=== PATIENT | male | born 1975 | race Hispanic/Latino ===

== ENCOUNTER 2019-06-04 10:07 | Emergency (ER) | payer SELFPAY ==
[2019-06-04] MEDS ORDERED: MORPHINE 4 MG/ML SYR ONE (10:31)
[2019-06-04] MEDS ORDERED: ONDANSETRON 4 MG/2 ML VIAL ONE (10:31)
[2019-06-04] MEDS ORDERED: NA CHLORIDE 0.9% 1,000 ML ONE (10:31)
[2019-06-04 10:57] LABS: Absolute Lymphocytes (CBC) 1.6 K/uL (0.7-4.9); Basophils % 0.6 % (0-1.3); Hematocrit 44.2 % (39.6-49.0); Lymphocytes % 33.1 % (15.3-44.8); MPV 9.7 fL (7.6-11.3)
[2019-06-04 11:29] LABS: ALT/SGPT 60 U/L (12-78); AST/SGOT 31 U/L (15-37); Albumin 3.6 g/dL (3.4-5.0); Alkaline Phosphatase 62 U/L (45-117); BUN Blood Urea Nitrogen 11 mg/dL (7-18); Bicarbonate 25 mmol/L (21-32); Bilirubin Direct < 0.1 mg/dL (0-0.2); Bilirubin Total 0.5 mg/dL (0.2-1.0); Glucose Level 121 mg/dL (74-106); Lipase 175 U/L (73-393); Protein, Total 7.4 g/dL (6.4-8.2); Sodium Level 138 mmol/L (136-145)
--- NOTE | 2019-06-04 12:32 | RAD REPORT ---
EXAM DESCRIPTION: CT - Abdomen Pelvis W Contrast - 06/04/2019 12:20 pm CLINICAL HISTORY: ABD PAIN COMPARISON: No comparisons TECHNIQUE: Biphasic, helical CT imaging of the abdomen and pelvis was performed following 100 ml non -ionic IV contrast. No oral contrast. All CT scans are performed using dose optimization technique as appropriate and may include automated exposure control or mA/KV adjustment according to patient size. FINDINGS: Left hemidiaphragm elevation is present. Stranding in the posteromedial left base is proba tai chronic atelectasis. An acute infiltrate is not seen. No pleural effusion. No pericardial thicken ing or effusion. Liver shows mild fatty infiltration. No focal liver lesion identified. Spleen and pancreas show no ac tere findings. No gallbladder abnormality. No biliary tree dilatation. Symmetric renal function is seen with no hydronephrosis or suspicious renal mass. No pyelonephritis o r acute parenchymal process. No bladder abnormalities. No adrenal abnormalities. Prostate gland and s eminal vesicles show no suspicious findings. No gastric dilatation or wall thickening. No small bowel abnormality. Appendix is normal. No acute co cadence finding seen. No free air, free fluid or inflammatory stranding. No mass or bulky lymphadenopat hy. Patient gives history of hernia repair, site of repair is not clearly evident. There are 2 hyperd ensities in the upper midline abdomen the could potentially be related to hiatal hernia repair. The p atient has a small fat only ventral hernia 9 cm above the umbilicus. This is approximately 3 cm AP x 1.5 cm TR with a 1 centimeter neck. No congestion or edema. No free air, free fluid or inflammatory stranding. No suspicious lymphadenopathy. No suspicious bony findings. IMPRESSION: Contrast enhanced CT abdomen and pelvis showing no emerging finding. Mild fatty infiltration of the liver.
[2019-06-04] MEDS ORDERED: KETOROLAC 30 MG/ML INJ ONE (13:18)
--- NOTE | 2019-06-04 13:24 | ER ---
Nurse's Notes [facility] Name: Buck Hauser Age: 43 yrs Sex: Male : 1975 Arrival Date: 06/04/2019 Time: 10:10 Bed 15 Private MD: Diagnosis: Abdominal tenderness Presentation: 06/04 10:10 Presenting complaint: Patient states: abd pain that started on the left side and went sv to the middle x 3 days, c/o nausea. Denies d/v. Transition of care: patient was not received from another setting of care. Onset of symptoms was June 01, 2019. Care prior to arrival: None. 10:10 Method Of Arrival: Ambulatory sv 10:10 Acuity: DIPAK 3 sv 10:40 Risk Assessment: Do you want to hurt yourself or someone else? Patient reports no em desire to harm self or others. Initial Sepsis Screen: Does the patient meet any 2 criteria? No. Patient's initial sepsis screen is negative. Does the patient have a suspected source of infection? No. Patient's initial sepsis screen is negative. Triage Assessment: 10:14 General: Appears in no apparent distress. uncomfortable, Behavior is calm, cooperative, sv appropriate for age. Pain: Complains of pain in epigastric area, left upper quadrant and left lower quadrant Pain currently is 10 out of 10 on a pain scale. Neuro: Level of Consciousness is awake, alert, obeys commands, Gait is steady. Respiratory: Respiratory effort is even, unlabored, Respiratory pattern is regular, symmetrical. GI: Reports lower abdominal pain, upper abdominal pain, nausea. Historical: - Allergies: 10:13 No Known Allergies; sv - PMHx: 10:13 gastritis; sv - PSHx: 10:13 Hernia repair; sv - Coronavirus screen:: The patient has NOT traveled to [place] in the past 14 days. Proceed with normal triage process as indicated. The patient has NOT had contact with known/suspected case of Coronavirus? Proceed with normal triage procedures. - Social history:: Smoking status: . - Ebola Screening: : No symptoms or risks identified at this time. Screenin:17 Abuse screen: Denies threats or abuse. Nutritional screening: No deficits noted. em Tuberculosis screening: No symptoms or risk factors identified. Fall Risk None identified. Assessment: 10:35 General: Appears in no apparent distress. uncomfortable, Behavior is calm, cooperative, em Denies fever. Pain: Complains of pain in left lower quadrant Pain radiates to umbilical area Pain currently is 9 out of 10 on a pain scale. Quality of pain is described as sharp, shooting, Pain began 2-3 days ago. Neuro: Level of Consciousness is awake, alert, obeys commands, Oriented to person, place, time, situation, Appropriate for age. Cardiovascular: Capillary refill < 3 seconds Patient's skin is warm and dry. Respiratory: Airway is patent Respiratory effort is even, unlabored, Respiratory pattern is regular, symmetrical. GI: Abdomen is flat, Bowel sounds present X 4 quads. Abd is soft X 4 quads Abdomen is tender to palpation in right lower quadrant and left lower quadrant Reports nausea, vomiting, Patient currently denies diarrhea. : Denies burning with urination. Derm: Skin is intact, is healthy with good turgor, Skin is pink, warm \T\ dry. Musculoskeletal: Capillary refill < 3 seconds, Range of motion: intact in all extremities. 11:08 Reassessment: Patient appears in no apparent distress at this time. Patient and/or em family updated on plan of care and expected duration. Pain level reassessed. Patient is alert, oriented x 3, equal unlabored respirations, skin warm/dry/pink. rates pain 5/10 Patient states feeling better. Patient states symptoms have improved. 12:10 Reassessment: Patient appears in no apparent distress at this time. wheeled to CT via em wheelchair. 13:04 Reassessment: Patient appears in no apparent distress at this time. reports pain is em 12/18, provider notified. 14:09 Reassessment: Patient appears in no apparent distress at this time. Patient and/or em family updated on plan of care and expected duration. Pain level reassessed. Patient is alert, oriented x 3, equal unlabored respirations, skin warm/dry/pink. Patient denies pain at this time. Vital Signs: 10:13 BP 134 / 83; Pulse 75; Resp 20; Temp 97.7; Pulse Ox 98% ; Weight 83.91 kg; Height 5 ft. sv 7 in. (170.18 cm); Pain 10/10; 11:09 BP 125 / 87; Pulse 77; Resp 18; Pulse Ox 99% on R/A; Pain 5/10; em 12:00 BP 125 / 82; Pulse 75; Resp 18; Pulse Ox 99% on R/A; em 13:00 BP 126 / 85; Pulse 73; Resp 16; Pulse Ox 100% on R/A; Pain 9/10; em 14:10 BP 132 / 87; Pulse 68; Resp 19; Pulse Ox 100% on R/A; Pain 0/10; em 10:13 Body Mass Index 28.97 (83.91 kg, 170.18 cm) sv ED Course: 10:10 Patient arrived in ED. rg4 10:10 Arm band placed on. sv 10:13 Triage completed. sv 10:16 Jose Ceballos MD is Attending Physician. tw4 10:17 Sharif Bolanos, RN is Primary Nurse. em 10:17 Patient has correct armband on for positive identification. Bed in low position. Call em light in reach. Side rails up X2. Adult w/ patient. Pulse ox on. NIBP on. 10:40 Initial lab(s) drawn, by me, sent to lab. Inserted saline lock: 20 gauge in right em antecubital area, using aseptic technique. Blood collected. 12:21 CT Abd/Pelvis - IV Contrast Only In Process Unspecified. EDMS 14:08 No provider procedures requiring assistance completed. IV discontinued, intact, em bleeding controlled, No redness/swelling at site. Pressure dressing applied. Administered Medications: 10:40 Drug: NS 0.9% 1000 ml Route: IV; Rate: 1 bolus; Site: right antecubital; em 12:13 Follow up: IV Status: Completed infusion; IV Intake: 1000ml em 10:41 Drug: Zofran 4 mg Route: IVP; Site: right antecubital; em 11:08 Follow up: Response: No adverse reaction; Marked relief of symptoms; Nausea is decreasedem 10:43 Drug: morphine 4 mg Route: IVP; Site: right antecubital; em 11:08 Follow up: Response: No adverse reaction; Pain is decreased; RASS: Alert and Calm (0) em 13:17 Drug: TORadol 30 mg Route: IVP; Site: right antecubital; em 14:12 Follow up: Response: No adverse reaction; Pain is decreased em Intake: 12:13 IV: 1000ml; Total: 1000ml. em Outcome: 13:21 Discharge ordered by . tw4 14:08 Discharged to home ambulatory, with family. em 14:08 Condition: good 14:08 Discharge instructions given to patient, family, Instructed on discharge instructions, follow up and referral plans. medication usage, Demonstrated understanding of instructions, follow-up care, medications, Prescriptions given X 2. 14:13 Patient left the ED. em Signatures: Dispatcher [employer] Eladia Ely RN RN sv Munoz, Edgar, RN RN Annabel Hauser 4 Jose Ceballos MD MD tw4 Corrections: (The following items were deleted from the chart) 10:15 10:13 Pulse 75bpm; Resp 20bpm; Pulse Ox 98%; Temp 97.7F; 83.91 kg; Height 5 ft. 7 in.; sv BMI: 28.9; Pain 01/17; sv
--- NOTE | 2019-06-04 13:24 | EDPHYS ---
Physician Documentation [facility] Name: Buck Hauser Age: 43 yrs Sex: Male : 1975 Arrival Date: 06/04/2019 Time: 10:10 Bed 15 Private MD: ED Physician Jose Ceballos HPI: 06/04 10:57 This 43 yrs old Male presents to ER via Ambulatory with complaints of tw4 Abdominal Pain, Back Pain. 10:57 The patient presents with abdominal pain in the lower abdomen, in the left lower tw4 quadrant. 10:58 Onset: The symptoms/episode began/occurred 3 day(s) ago. The symptoms radiate to tw4 umbilical area. Associated signs and symptoms: Pertinent positives: nausea, Pertinent negatives: diarrhea, dysuria, fever, headache, palpitations, shortness of breath, testicular pain, vomiting, vomiting blood. The symptoms are described as sharp. Modifying factors: The symptoms are alleviated by nothing, the symptoms are aggravated by nothing. Severity of pain: At its worst the pain was moderate in the emergency department the pain is unchanged. The patient has not experienced similar symptoms in the past. Historical: - Allergies: 10:13 No Known Allergies; sv - PMHx: 10:13 gastritis; sv - PSHx: 10:13 Hernia repair; sv - Coronavirus screen:: The patient has NOT traveled to [place] in the past 14 days. Proceed with normal triage process as indicated. The patient has NOT had contact with known/suspected case of Coronavirus? Proceed with normal triage procedures. - Social history:: Smoking status: . - Ebola Screening: : No symptoms or risks identified at this time. ROS: 10:58 Constitutional: Negative for fever, chills, and weight loss, Eyes: Negative for injury, tw4 pain, redness, and discharge, ENT: Negative for injury, pain, and discharge, Cardiovascular: Negative for chest pain, palpitations, and edema, Respiratory: Negative for shortness of breath, cough, wheezing, and pleuritic chest pain, Back: Negative for injury and pain, MS/Extremity: Negative for injury and deformity, Skin: Negative for injury, rash, and discoloration, Neuro: Negative for headache, weakness, numbness, tingling, and seizure. 10:58 Abdomen/GI: Positive for abdominal pain, nausea, Negative for nausea and vomiting, nausea, vomiting, and diarrhea, diarrhea, constipation, abdominal cramps, abdominal distension, anorexia, dysphagia, hematemesis, black/tarry stool, rectal pain, rectal bleeding, bowel incontinence, flatulence. Exam: 10:58 Constitutional: This is a well developed, well nourished patient who is awake, alert, tw4 and in no acute distress. Head/Face: Normocephalic, atraumatic. Chest/axilla: Normal chest wall appearance and motion. Nontender with no deformity. No lesions are appreciated. Cardiovascular: Regular rate and rhythm with a normal S1 and S2. No gallops, murmurs, or rubs. Normal PMI, no JVD. No pulse deficits. Respiratory: Lungs have equal breath sounds bilaterally, clear to auscultation and percussion. No rales, rhonchi or wheezes noted. No increased work of breathing, no retractions or nasal flaring. Back: No spinal tenderness. No costovertebral tenderness. Full range of motion. Skin: Warm, dry with normal turgor. Normal color with no rashes, no lesions, and no evidence of cellulitis. MS/ Extremity: Pulses equal, no cyanosis. Neurovascular intact. Full, normal range of motion. Neuro: Awake and alert, GCS 15, oriented to person, place, time, and situation. Cranial nerves II-XII grossly intact. Motor strength 5/5 in all extremities. Sensory grossly intact. Cerebellar exam normal. Normal gait. 10:58 Abdomen/GI: Inspection: abdomen appears normal, Bowel sounds: diminished, in all quadrants, Palpation: moderate abdominal tenderness, in the left lower quadrant. Vital Signs: 10:13 BP 134 / 83; Pulse 75; Resp 20; Temp 97.7; Pulse Ox 98% ; Weight 83.91 kg; Height 5 ft. sv 7 in. (170.18 cm); Pain 10/10; 11:09 BP 125 / 87; Pulse 77; Resp 18; Pulse Ox 99% on R/A; Pain 5/10; em 12:00 BP 125 / 82; Pulse 75; Resp 18; Pulse Ox 99% on R/A; em 13:00 BP 126 / 85; Pulse 73; Resp 16; Pulse Ox 100% on R/A; Pain 9/10; em 14:10 BP 132 / 87; Pulse 68; Resp 19; Pulse Ox 100% on R/A; Pain 0/10; em 10:13 Body Mass Index 28.97 (83.91 kg, 170.18 cm) sv MDM: 10:16 Patient medically screened. tw 21:20 Differential diagnosis: bowel obstruction, diverticulitis, Irritable bowel syndrome, tw4 pancreatitis, Peritonitis, Pyelonephritis, Ureterolithiasis, urinary tract infection. Data reviewed: vital signs, nurses notes. Data reviewed: lab test result(s), CBC, electrolytes, radiologic studies, CT scan. Data interpreted: Pulse oximetry: Interpretation: normal. Counseling: I had a detailed discussion with the patient and/or guardian regarding: the historical points, exam findings, and any diagnostic results supporting the discharge/admit diagnosis. Medication response: Toradol relieved patient's pain. The symptoms have resolved. Response to treatment: the patient's symptoms have markedly improved after treatment, and as a result, I will discharge patient. Special discussion: Based on the patient's Hx, exam, and Dx evaluation, there is no indication for emergent surgery or inpatient Tx. It is understood by the patient/guardian that if the Sx's persist or worsen they need to return immediately for re-evaluation. I discussed with the patient/guardian in detail that at this point there is no indication for admission to the hospital. It is understood, however, that if the symptoms persist or worsen the patient needs to return immediately for re-evaluation. 06/04 10:21 Order name: Basic Metabolic Panel; Complete Time: 11:39 06/04 11:40 Interpretation: Normal except: GLUC 121. 06/04 10:21 Order name: CBC with Diff; Complete Time: 11:39 06/04 11:40 Interpretation: Normal except: RDW 11.6. 06/04 10:21 Order name: Creatinine for Radiology; Complete Time: 11:39 06/04 11:40 Interpretation: Within normal limits: CRE 0.83. 06/04 10:21 Order name: Hepatic Function; Complete Time: 11:39 06/04 11:40 Interpretation: Normal except: GLOB 3.8; A/G 0.9. 06/04 10:21 Order name: Lipase; Complete Time: 11:39 06/04 11:40 Interpretation: Within normal limits: LIP 175. 25 13:20 Order name: Urine Dipstick--Ancillary (enter results); Complete Time: 14:12 bd 06/04 10:21 Order name: IV Saline Lock; Complete Time: 11:00 tw4 06/04 10:21 Order name: Labs collected and sent; Complete Time: 11:00 tw4 06/04 10:41 Order name: CT Abd/Pelvis - IV Contrast Only; Complete Time: 12:44 tw4 06/04 12:44 Interpretation: No acute disease. tw4 06/04 12:46 Order name: Urine Dipstick-Ancillary (obtain specimen); Complete Time: 13:20 tw4 Administered Medications: 10:40 Drug: NS 0.9% 1000 ml Route: IV; Rate: 1 bolus; Site: right antecubital; em 12:13 Follow up: IV Status: Completed infusion; IV Intake: 1000ml em 10:41 Drug: Zofran 4 mg Route: IVP; Site: right antecubital; em 11:08 Follow up: Response: No adverse reaction; Marked relief of symptoms; Nausea is decreasedem 10:43 Drug: morphine 4 mg Route: IVP; Site: right antecubital; em 11:08 Follow up: Response: No adverse reaction; Pain is decreased; RASS: Alert and Calm (0) em 13:17 Drug: TORadol 30 mg Route: IVP; Site: right antecubital; em 14:12 Follow up: Response: No adverse reaction; Pain is decreased em Disposition: 06/04/19 13:21 Discharged to Home. Impression: Abdominal tenderness. - Condition is Stable. - Discharge Instructions: Abdominal Pain, Adult. - Prescriptions for Bentyl 20 mg Oral Tablet - take 1 tablet by ORAL route every 6 hours As needed; 20 tablet. Ibuprofen 800 mg Oral Tablet - take 1 tablet by ORAL route every 8 hours As needed take with food; 30 tablet. - Medication Reconciliation Form, Thank You Letter, Antibiotic Education, Prescription Opioid Use form. - Follow up: Private Physician; When: Upon discharge from the Emergency Department; Reason: If symptoms return, Recheck today's complaints, Continuance of care, Re-evaluation by your physician. Signatures: [facility] Eladia Ely RN RN Sharif Bolanos RN RN em Jose Ceballos MD MD tw4 Corrections: (The following items were deleted from the chart) 14:13 13:21 06/04/2019 13:21 Discharged to Home. Impression: Abdominal tenderness. Condition em is Stable. Forms are Medication Reconciliation Form, Thank You Letter, Antibiotic Education, Prescription Opioid Use. Follow up: Private Physician; When: Upon discharge from the Emergency Department; Reason: If symptoms return, Recheck today's complaints, Continuance of care, Re-evaluation by your physician. tw4
[2019-06-04 14:05] LABS: Urine Blood NEGATIVE (NEG); Urine Glucose NEGATIVE (NEG); Urine Protein NEGATIVE (NEG)
[2019-06-04 14:19] VITALS: TEMP 97.7
[2019-06-04 14:24] VITALS: O2SAT 100
[2019-06-04 14:25] VITALS: BP 132/87
== END 2019-06-04 14:13 | disposition home or self-care (01) ==
LOC: ER 10:07
DX: R10.814 Left lower quadrant abdominal tenderness (principal)
CPT/HCPCS: 36415; 74177; 80048; 80076; 81003; 83690; 85025; 96361; 96374; 96375; 99284; J2405; J7030; Q9967

== ENCOUNTER 2021-12-20 12:55 | Emergency (ER) | payer SELFPAY ==
--- OUTSIDE RECORDS SUMMARY | 2021-12-20 12:58 | XMS REPORT | Continuity of Care Document ---
:[address] [facility] t Address [address] [place] [address] [address] [place] [address] Care Team Providers Name Role Phone PCP, PATIENT DOES NOT HAVE A Primary Care Physician Unavaila EFREM Farmer Attending Clinician Unavailable Lab, Max Carrasco I Attending Clinician Unavailable Latricia Rae Attending Clinician LATRICIA VILLAFUERTE Attending Clinician Unavailable Problems This patient has no known problems. Allergies, Adverse Reactions, Alerts Allergy Allergy Status Severity Reaction(s) Onset Inactive Treating Comm ents Source Name Type Date Date Clinician NO KNOWN Drug Active [facility] Social History Social Habit Start Date Stop Date Quantity Comments Source [facility] Exposure to SARS-CoV-2 Not sure [facility] [place] [facility] Smoking Status Start Date Stop Date Source Unknown if ever smoked [facility] Medications This patient has no known medications. Procedures This patient has no known procedures. Encounters Start End Encounter Admission Attending Care Care Encounter Source Date/Time Date/Time Type Type Clinicians Facility Department ID 2020-07-18 2020-07-18 Outpatient Sunita [facility] [id number] [facility] 16:50:00 15:48:01 [facility] 2020-06-27 2020-06-27 Outpatient Sunita [facility] [id number] [facility] 16:50:00 16:50:00 [facility] 2020-03-26 2020-03-26 Laboratory Lab, [facility] Fam Pob I [facility] 1.2. [id number] [facility] 19:00:12 19:20:12 Only Latricia Villafuerte [facility] [id number] [facility] [id number] [facility] as Professio [phone] [place] [address] [place] [address] [address] 2020-03-26 2020-03-26 Outpatient R [facility]Y [facility] [id number] [facility] 19:00:00 19:00:00 LATRICIA deleon [facility] Results This patient has no known results.
[2021-12-20] MEDS ORDERED: MORPHINE 4 MG/ML SYR ONE (13:32)
[2021-12-20] MEDS ORDERED: ONDANSETRON 4 MG/2 ML VIAL ONE (13:33)
[2021-12-20] MEDS ORDERED: NA CHLORIDE 0.9% 1,000 ML ONE (13:33)
[2021-12-20 13:41] LABS: Albumin 3.9 g/dL (3.4-5.0); Bilirubin Total 0.5 mg/dL (0.2-1.0); Potassium 4.2 mmol/L (3.5-5.1); Protein, Total 7.4 g/dL (6.4-8.2)
--- NOTE | 2021-12-20 13:46 | RAD REPORT ---
EXAM DESCRIPTION: CT - Stone Protocol - 12/20/2021 1:23 pm CLINICAL HISTORY: Abdominal pain./right flank pain COMPARISON: 2019 TECHNIQUE: Computed axial tomography of the abdomen pelvis was obtained without oral or IV contrast. Lack of IV and oral contrast limits evaluation of solid organs, appendix, bowel, and vessels. Erazo l reformatted images were obtained and reviewed. All CT scans are performed using dose optimization technique as appropriate and may include automated exposure control or mA/KV adjustment according to patient size. FINDINGS: Small bilateral renal calculi. Mild to moderate right hydronephrosis. Right ureter dilated. 2 millimeter calculus right UVJ. Mild fatty liver Spleen, pancreas and adrenals are unremarkable. There is no evidence of diverticulitis. The appendix appears normal Mild prostatic enlargement IMPRESSION: 2 millimeter calculus right UVJ resulting in mild to moderate right hydronephrosis
[2021-12-20] MEDS ORDERED: TAMSULOSIN 0.4 MG SR CAP ONE (14:23)
[2021-12-20 14:24] LABS: Absolute Lymphocytes (CBC) 1.6 K/uL (0.7-4.9); Hematocrit 41.6 % (39.6-49.0); Lymphocytes % 32.8 % (15.3-44.8); MCV 84.9 fL (80-100); MPV 9.7 fL (7.6-11.3)
[2021-12-20] MEDS ORDERED: KETOROLAC 30 MG/ML INJ ONE (16:01)
[2021-12-20 16:12] LABS: Urine Blood Trace-intact (Negative); Urine Glucose Negative (Negative); Urine Protein Negative (Negative)
--- NOTE | 2021-12-20 16:38 | EDPHYS ---
Physician Documentation [facility] Name: Buck Hauser Age: 46 yrs Sex: Male : 1975 Arrival Date: 12/20/2021 Time: 12:57 Bed 9 Private MD: CLARE Physician Oscar Siddiqi HPI: 12/20 13:08 This 46 yrs old Male presents to ER via Ambulatory with complaints of jmm Abdominal Pain. 13:08 The patient presents with abdominal pain. Onset: The symptoms/episode began/occurred jmm gradually, today. The symptoms do not radiate. Associated signs and symptoms: Pertinent positives: nausea. This is a 46-year-old male with history of gastritis, kidney stones the presents emerged part with complaints of right flank pain beginning last night and worsening today around 9 AM.. Historical: - Allergies: 13:05 No Known Allergies; aa5 - PMHx: 13:05 gastritis; aa5 13:06 Kidney stone; aa5 - Immunization history:: Adult Immunizations unknown. - Social history:: Smoking status: Patient denies any tobacco usage or history of. ROS: 13:08 Constitutional: Negative for fever, chills, and weight loss, Cardiovascular: Negative jmm for chest pain, palpitations, and edema, Respiratory: Negative for shortness of breath, cough, wheezing, and pleuritic chest pain. 13:08 Abdomen/GI: Positive for abdominal pain, nausea. 13:08 Back: Positive for flank pain, on the right. 13:08 All other systems are negative. Exam: 13:08 Constitutional: This is a well developed, well nourished patient who is awake, alert, jmm and in no acute distress. Head/Face: atraumatic. Eyes: EOMI, no conjunctival erythema appreciated ENT: Moist Mucus Membranes Neck: Trachea midline, Supple Chest/axilla: Normal chest wall appearance and motion. Cardiovascular: Regular rate and rhythm. No edema appreciated Respiratory: Normal respirations, no respiratory distress appreciated 13:08 Skin: General appearance color normal MS/ Extremity: Moves all extremities, no obvious deformities appreciated, no edema noted to the lower extremities Neuro: Awake and alert Psych: Behavior is normal, Mood is normal, Patient is cooperative and pleasant 13:08 Abdomen/GI: Inspection: abdomen appears normal, Bowel sounds: normal, Palpation: soft, mild abdominal tenderness, in the right lower quadrant. 13:08 Back: CVA tenderness, that is moderate, is noted on the right. Vital Signs: 13:04 BP 124 / 81; Pulse 71; Resp 16 S; Temp 97.7(TE); Pulse Ox 98% on R/A; Weight 90.72 kg aa5 (R); Height 5 ft. 7 in. (170.18 cm) (R); 17:00 BP 129 / 71; Pulse 70; Resp 18; Pulse Ox 96% on R/A; em6 13:04 Body Mass Index 31.32 (90.72 kg, 170.18 cm) aa5 MDM: 13:08 Patient medically screened. [facility] 16:37 Data reviewed: vital signs, nurses notes. Counseling: I had a detailed discussion with [facility] the patient and/or guardian regarding: the historical points, exam findings, and any diagnostic results supporting the discharge/admit diagnosis, lab results, radiology results, the need for outpatient follow up, to return to the emergency department if symptoms worsen or persist or if there are any questions or concerns that arise at home. 12/20 13:08 Order name: CBC with Diff; Complete Time: 14:54 [facility] 12/20 13:08 Order name: CMP; Complete Time: 13:42 [facility] 12/20 13:08 Order name: Lipase; Complete Time: 13:42 [facility] 12/20 13:09 Order name: CT Stone Protocol; Complete Time: 13:47 [facility] 12/20 16:12 Order name: Urine Dipstick-Ancillary; Complete Time: 16:25 [facility] 12/20 13:08 Order name: IV Saline Lock; Complete Time: 13:35 [facility] 12/20 13:08 Order name: Labs collected and sent; Complete Time: 13:35 [facility] 12/20 13:08 Order name: Urine Dipstick-Ancillary (obtain specimen); Complete Time: 16:12 [facility] Administered Medications: 13:35 Drug: NS 0.9% 1000 ml Route: IV; Rate: 1 bolus; Site: right antecubital; em6 14:23 Follow up: IV Status: Completed infusion; IV Intake: 1000ml em6 13:35 Drug: Zofran (Ondansetron) 4 mg Route: IVP; Site: right antecubital; em6 14:00 Follow up: Response: No adverse reaction em6 13:35 Drug: morphine 4 mg Route: IVP; Infused Over: 4 mins; Site: right antecubital; em6 14:23 Follow up: Response: No adverse reaction; RASS: Alert and Calm (0) em6 14:21 Drug: Flomax (tamsulosin) 0.4 mg Route: PO; em6 16:42 Follow up: Response: No adverse reaction em6 15:55 Drug: Ketorolac 30 mg Route: IVP; Site: right antecubital; em6 16:42 Follow up: Response: No adverse reaction em6 16:50 Drug: [place] (HYDROcodone-acetaminophen) 10 mg-325 mg 1 tabs Route: PO; em6 17:02 Follow up: Response: No adverse reaction; RASS: Alert and Calm (0) em6 Disposition Summary: 12/20/21 16:38 Discharge Ordered Location: Home [facility] Condition: Stable [facility] Diagnosis - Calculus of ureter [facility] Followup: [facility] - With: Jaciel Karimi MD - When: 2 - 3 days - Reason: Recheck today's complaints, Continuance of care, Re-evaluation by your physician Discharge Instructions: - Discharge Summary Sheet [facility] - Kidney Stones [facility] - Dietary Guidelines to Help Prevent Kidney Stones [facility] Forms: - Medication Reconciliation Form [facility] - Thank You Letter [facility] - Antibiotic Education [facility] - Prescription Opioid Use [facility] Prescriptions: - tamsulosin 0.4 mg Oral capsule - take 1 capsule by ORAL route once daily for 10 days 1/2 hour following the same [facility] meal each day; 10 capsule; Refills: 0, Product Selection Permitted - ondansetron 4 mg Oral tablet,disintegrating - place 1 tablet by TRANSLINGUAL route every 4-6 hours As needed; 20 tablet; [facility] Refills: 0, Product Selection Permitted - Ultracet 37.5-325 mg Oral Tablet - take 1 tablet by ORAL route every 6 hours As needed - for up to 5 days; do not [facility] exceed 8 tablets per day.; 20 tablet; Refills: 0, Product Selection Permitted Signatures: Dispatcher [employer] EDWyatt Gannon PA PA jmm Calderon, Audri, RN RN aa5 Luzmaria Timmons RN RN em6
--- NOTE | 2021-12-20 16:38 | ER ---
Nurse's Notes [facility] Name: Buck Hauser Age: 46 yrs Sex: Male : 1975 Arrival Date: 12/20/2021 Time: 12:57 Bed 9 Private MD: Diagnosis: Calculus of ureter Presentation: 12/20 13:04 Chief complaint: Patient states: right flank pain that began today around 0900. Reports aa5 nausea. Coronavirus screen: At this time, the client does not indicate any symptoms associated with coronavirus-19. Ebola Screen: Patient denies travel to an Ebola-affected area in the 21 days before illness onset. Initial Sepsis Screen: Does the patient meet any 2 criteria? No. Patient's initial sepsis screen is negative. Does the patient have a suspected source of infection? No. Patient's initial sepsis screen is negative. Risk Assessment: Do you want to hurt yourself or someone else? Patient reports no desire to harm self or others. Onset of symptoms was December 20, 2021. 13:04 Acuity: DIPAK 3 aa5 13:04 Method Of Arrival: Ambulatory aa5 Historical: - Allergies: 13:05 No Known Allergies; aa5 - PMHx: 13:05 gastritis; aa5 13:06 Kidney stone; aa5 - Immunization history:: Adult Immunizations unknown. - Social history:: Smoking status: Patient denies any tobacco usage or history of. Screenin:37 Abuse screen: Denies threats or abuse. Nutritional screening: No deficits noted. em6 Tuberculosis screening: No symptoms or risk factors identified. Fall Risk IV access (20 points). Total [place] Fall Scale indicates No Risk (0-24 pts). Assessment: 13:35 General: Appears uncomfortable, Behavior is cooperative, appropriate for age. Pain: em6 Complains of pain in anterior aspect of right lateral abdomen and posterior aspect of right lateral abdomen Pain radiates to posterior aspect of right lateral abdomen Pain currently is 10 out of 10 on a pain scale. Quality of pain is described as radiating, sharp, Pain began 4 hours ago. Is continuous. Neuro: Gayle Agitation-Sedation Scale (RASS): 0 - Alert and Calm Level of Consciousness is awake, alert, obeys commands, Oriented to person, place, time, situation. Cardiovascular: Heart tones present Patient's skin is warm and dry. Respiratory: Airway is patent Respiratory effort is even, unlabored, Breath sounds are clear bilaterally. GI: Abdomen is non-distended, Bowel sounds present X 4 quads. Abd is soft and non tender X 4 quads. Reports. : No signs and/or symptoms were reported regarding the genitourinary system. EENT: No signs and/or symptoms were reported regarding the EENT system. Derm: No signs and/or symptoms reported regarding the dermatologic system. Musculoskeletal: Circulation, motion, and sensation intact. Range of motion: intact in all extremities. 14:35 Reassessment: Patient appears in no apparent distress at this time. No changes from em6 previously documented assessment. Patient and/or family updated on plan of care and expected duration. Pain level reassessed. Patient is alert, oriented x 3, equal unlabored respirations, skin warm/dry/pink. 15:45 Reassessment: pain is currently at an 8. notified provider . Pain: Complains of pain in em6 posterior aspect of right lateral abdomen and anterior aspect of right lateral abdomen. 16:41 Reassessment: Patient and/or family updated on plan of care and expected duration. Pain em6 level reassessed. Patient is alert, oriented x 3, equal unlabored respirations, skin warm/dry/pink. Patient states symptoms have improved. Vital Signs: 13:04 BP 124 / 81; Pulse 71; Resp 16 S; Temp 97.7(TE); Pulse Ox 98% on R/A; Weight 90.72 kg aa5 (R); Height 5 ft. 7 in. (170.18 cm) (R); 17:00 BP 129 / 71; Pulse 70; Resp 18; Pulse Ox 96% on R/A; em6 13:04 Body Mass Index 31.32 (90.72 kg, 170.18 cm) aa5 ED Course: 12:57 Patient arrived in ED. rg4 13:04 Arm band placed on. aa5 13:05 Wyatt Khan PA is PHCP. jmm 13:05 Oscar Siddiqi MD is Attending Physician. jmm 13:05 Triage completed. aa5 13:24 CT Stone Protocol In Process Unspecified. EDMS 13:37 Patient has correct armband on for positive identification. Bed in low position. Call em6 light in reach. Side rails up X 1. 16:37 Jaciel Karimi MD is Referral Physician. jmm 17:01 No provider procedures requiring assistance completed. em6 17:01 IV discontinued, intact, bleeding controlled, No redness/swelling at site. Pressure em6 dressing applied. Administered Medications: 13:35 Drug: NS 0.9% 1000 ml Route: IV; Rate: 1 bolus; Site: right antecubital; em6 14:23 Follow up: IV Status: Completed infusion; IV Intake: 1000ml em6 13:35 Drug: Zofran (Ondansetron) 4 mg Route: IVP; Site: right antecubital; em6 14:00 Follow up: Response: No adverse reaction em6 13:35 Drug: morphine 4 mg Route: IVP; Infused Over: 4 mins; Site: right antecubital; em6 14:23 Follow up: Response: No adverse reaction; RASS: Alert and Calm (0) em6 14:21 Drug: Flomax (tamsulosin) 0.4 mg Route: PO; em6 16:42 Follow up: Response: No adverse reaction em6 15:55 Drug: Ketorolac 30 mg Route: IVP; Site: right antecubital; em6 16:42 Follow up: Response: No adverse reaction em6 16:50 Drug: [place] (HYDROcodone-acetaminophen) 10 mg-325 mg 1 tabs Route: PO; em6 17:02 Follow up: Response: No adverse reaction; RASS: Alert and Calm (0) em6 Medication: 13:38 VIS not applicable for this client. em6 Intake: 14:23 IV: 1000ml; Total: 1000ml. em6 Outcome: 16:38 Discharge ordered by . [facility] 17:01 Discharged to home ambulatory, with significant other. em6 17:01 Condition: stable 17:01 Discharge instructions given to patient, significant other, Instructed on discharge instructions, follow up and referral plans. medication usage, Demonstrated understanding of instructions, follow-up care, medications, Prescriptions given X 3. 17:02 Patient left the ED. em6 Signatures: Dispatcher [employer] EDMS Wyatt Khan PA PA jmm Calderon, Audri, RN RN [id number] Annabel Hauser rg4 Luzmaria Timmons RN RN em6 Corrections: (The following items were deleted from the chart) 13:06 13:04 Pulse 71bpm; Resp 16bpm; Spontaneous; Pulse Ox 98% RA; Temp 97.7F Temporal; 90.72 aa5 kg Reported; Height 5 ft. 7 in. Reported; BMI: 31.3; aa5
[2021-12-20] MEDS ORDERED: HYDROCODONE/APAP 10/325 TAB ONE (16:59)
[2021-12-20 18:15] VITALS: TEMP 97.7
[2021-12-20 18:17] VITALS: BP 129/71; O2SAT 96
== END 2021-12-20 17:02 | disposition home or self-care (01) ==
LOC: ER 12:55
DX: N20.1 Calculus of ureter (principal); Z87.442 Personal history of urinary calculi
CPT/HCPCS: 36415; 74176; 76377; 80053; 81003; 83690; 85025; 96361; 96374; 96375; 99283; J2405; J7030